=== PATIENT | male | born 1990 | race Caucasian/White ===

== ENCOUNTER → 2018-08-29 | Outpatient (CLI) | payer OTHER ==
--- NOTE | 2018-08-29 09:35 | MR ---
EXAMINATION TYPE: MR brain wo con DATE OF EXAM: 08/29/2018 COMPARISON: NONE HISTORY: Family Hx of Aorta Aneurysm and kidney disease per order. Left orbital reconstruction surger y 7-8 years ago per patient. TECHNIQUE: Multiplanar, multisequence imaging of the brain and brainstem is performed without IV cont rast. FINDINGS: Diffusion weighted images demonstrate no evidence of a recent infarct or other diffusion abnormality. There is no significant white matter signal abnormality. The ventricular system and cisternal spaces are normal in size and appearance. The brain volume is age appropriate. In the midline superior pos terior aspect posterior fossa there is focal 1.9 x 2.0 cm x 2.9 cm lesion of CSF isointensity axial i mage 8 and coronal image 30 suspicious for small arachnoid cyst with local mass effect Midline structures demonstrate normal morphology. The craniocervical junction appears within normal limits. Normal vascular flow voids are present. Slightly tortuous course to distal vertebral arteries is noted bilaterally. No obvious aneurysm is seen. There is mild mucosal thickening with small mucou s retention cysts and/or polyps in the inferior aspect right maxillary sinus. There is mild mucosal t hickening involving anterior ethmoid sinuses bilaterally. Remainder paranasal sinuses are clear. The globes are intact bilaterally. IMPRESSION: No obvious aneurysm noted. Some chronic paranasal sinus disease is seen as detailed above . Suspect 2.0 cm superior posterior posterior fossa arachnoid cyst. If outside MRI becomes available an addendum may be issued.
== END ==
LOC: RADMRIMAIN 07:00
PROVIDERS: ATTEND Family Medicine
DX: R51 Headache (principal)
CPT/HCPCS: 70551

== ENCOUNTER 2020-03-21 17:58 | Emergency (ER) | payer OTHER ==
[2020-03-21 18:06] VITALS: TEMP 98.1
[2020-03-21] MEDS ORDERED: BACITRACIN OINT 1 EACH PACKET TOPICAL ONE (19:08)
--- NOTE | 2020-03-21 19:08 | ED ---
Animal Bite HPI - General Chief Complaint: Animal Bite Stated Complaint: dog bite Time Seen by Provider: 03/21/20 18:28 Source: patient Mode of arrival: ambulatory Limitations: no limitations - History of Present Illness Initial Comments: 29-year-old male presenting today for chief complaint of dog bite to the right forearm. Pateitn states he has 2 opening on the right forarm from breaking up dog fight. Patient has one to the base of thumb of left hand. he states bleeding is controlled. admits to swelling right forearm and tingling in the right hand. Denies decreased strength ROM. Denies concern for retained foreign body. Patient tetanus is UTD in last 5 years. He states the dog is a neighbors pet and he does not have concern for rabies. denies other injuries or complaints. - Related Data Previous Rx's Medication Instructions Recorded Cephalexin [Keflex] 500 mg PO Q8HR #15 cap 07/12/14 Amoxic-Pot Clav 875-125Mg 1 tab PO Q12HR 10 Days #20 tab 03/21/20 [Augmentin 875-125] Allergies Allergy/AdvReac Type Severity Reaction Status Date / Time No Known Allergies Allergy Verified 07/12/14 18:33 Review of Systems ROS Statement: Those systems with pertinent positive or pertinent negative responses have been documented in the HPI. ROS Other: All systems not noted in ROS Statement are negative. Past Medical History Past Medical History: No Reported History History of Any Multi-Drug Resistant Organisms: None Reported Additional Past Surgical History / Comment(s): LT ORBITAL REPAIR Past Psychological History: No Psychological Hx Reported Smoking Status: Never smoker Past Alcohol Use History: None Reported, Rare Past Drug Use History: None Reported General Exam - General Exam Comments Initial Comments: General: The patient is awake and alert, in no distress Eye: +3 mm pupils are equal, round and reactive to light, extra-ocular movements are intact. No nystagmus. There is normal conjunctiva bilaterally. No signs of icterus. Cardiovascular: There is a regular rate and rhythm. No murmur, rub or gallop is appreciated. Respiratory: Lungs are clear to auscultation, respirations are non-labored, breath sounds are equal. No wheezes, stridor, rales, or rhonchi. Gastrointestinal: Soft, non-distended, non-tender abdomen without masses or organomegaly noted. There is no rebound or guarding present. Musculoskeletal: Normal ROM, no tenderness. Strength 5/5 of digits of right and lef thand, wrist and elbow. Sensation intact of UE from arm to fingers. Radial pulses equal bilaterally 2+. Neurological: A&O x 3. CN II-XII intact grossly, There are no obvious motor or sensory deficits. Coordination appears grossly intact. Speech is normal. Skin: Skin is warm and dry and no rashes. 2 punctures of the right distal forearm. 1 of thenar eminence of left thumb base no evidence of foreign body within the small punctures. no active bleeding Psychiatric: Cooperative, appropriate mood & affect, normal judgment. Limitations: no limitations Course Vital Signs 03/21/20 03/21/20 18:00 20:09 Temperature 98.1 F Pulse Rate 137 H 80 Respiratory 16 18 Rate Blood Pressure 151/88 158/87 O2 Sat by Pulse 95 98 Oximetry Medical Decision Making - Medical Decision Making Bleeding controlled. refused xrays, pt didnt think anything broken or retained. tdap UTD. laceration extensively irrigated. bandaged. Patient taking on risk of infection. Patient started on oral antibiotics he is to monitor closely the wound sites. Discussed patient may return if he changes mind about rabies reflexes patient states he wants to talk to his neighbors before he initiates this. Patient has no additional complaints discussed case attending provider and patidarwinn was discharged appearing well. Disposition Clinical Impression: Dog bite, Puncture wound, hand, Puncture wound of right forearm Disposition: HOME SELF-CARE Instructions (If sedation given, give patient instructions): Animal Bite (ED) Additional Instructions: Please use medication as discussed. Please follow-up with family doctor in the next 2 days,watch for infection. Please return to emergency room if the symptoms increase or worsen or for any other concerns. Prescriptions: Amoxic-Pot Clav 875-125Mg [Augmentin 875-125] 1 tab PO Q12HR 10 Days #20 tab Is patient prescribed a controlled substance at d/c from ED?: No Referrals: Nonstaff,Physician [Primary Care Provider] - 1-2 days Time of Disposition: 19:58
[2020-03-21 20:11] VITALS: BP 158/87; PULSE 80; RESP 18
== END 2020-03-21 20:10 | disposition home or self-care (01) ==
LOC: EC 17:58
DX: S51.831A Puncture wound without foreign body of right forearm, initial encounter (principal); S61.032A Puncture wound without foreign body of left thumb without damage to nail, initial encounter; W54.0XXA Bitten by dog, initial encounter
CPT/HCPCS: 99283

== ENCOUNTER 2020-03-22 13:21 | Emergency (ER) | payer OTHER ==
[2020-03-22 13:33] VITALS: RESP 18
[2020-03-22] MEDS ORDERED: RABIES VACCINE (PCEC) 2.5 UNIT KIT IM ONE (13:58)
[2020-03-22] MEDS ORDERED: RABIES IMMUNE GLOB 300 UNIT/ML 1 ML VIAL IM ONE (13:58)
--- NOTE | 2020-03-22 13:59 | ED ---
Animal Bite HPI - General Chief Complaint: Animal Bite Stated Complaint: Shots Time Seen by Provider: 03/22/20 13:43 Source: patient Mode of arrival: ambulatory Limitations: no limitations - History of Present Illness Initial Comments: Patient is a 29-year-old male presenting to the emergency department with a chief complaint of a dog bite. Patient states yesterday he suffered dog bite and found out today the dog was not up-to-date with vaccinations. Patient is requesting rabies prophylaxis. Patient is already on Augmentin. Patient denies nausea vomiting diarrhea. Denies night sweats fevers or chills. Denies any erythema or discharge from the bite sites. - Related Data Previous Rx's Medication Instructions Recorded Cephalexin [Keflex] 500 mg PO Q8HR #15 cap 07/12/14 Amoxic-Pot Clav 875-125Mg 1 tab PO Q12HR 10 Days #20 tab 03/21/20 [Augmentin 875-125] Ibuprofen 800 mg PO Q8H PRN 7 Days #21 tablet 03/22/20 Allergies Allergy/AdvReac Type Severity Reaction Status Date / Time No Known Allergies Allergy Verified 07/12/14 18:33 Review of Systems ROS Statement: Those systems with pertinent positive or pertinent negative responses have been documented in the HPI. ROS Other: All systems not noted in ROS Statement are negative. Past Medical History Past Medical History: No Reported History History of Any Multi-Drug Resistant Organisms: None Reported Additional Past Surgical History / Comment(s): LT ORBITAL REPAIR Past Psychological History: No Psychological Hx Reported Smoking Status: Never smoker Past Alcohol Use History: Rare Past Drug Use History: None Reported General Exam Limitations: no limitations General appearance: alert, in no apparent distress Head exam: Present: atraumatic, normocephalic, normal inspection Eye exam: Present: normal appearance, PERRL, EOMI Pupils: Present: normal accommodation ENT exam: Present: normal exam, normal oropharynx, mucous membranes moist, TM's normal bilaterally, normal external ear exam Neck exam: Present: normal inspection, full ROM. Absent: tenderness Respiratory exam: Present: normal lung sounds bilaterally. Absent: respiratory distress, wheezes, rales Cardiovascular Exam: Present: regular rate, normal rhythm, normal heart sounds Extremities exam: Present: full ROM, tenderness (Tenderness at the injured site), normal capillary refill, other (+2 +2 ulnar and radial pulses bilateral.). Absent: normal inspection (2 puncture wounds from a dog bite on the posterior aspect of his right forearm. Similar ones on the posterior left forearm.) Back exam: Present: normal inspection, full ROM. Absent: tenderness, CVA tenderness (R), CVA tenderness (L) Neurological exam: Present: alert, oriented X3 Psychiatric exam: Present: normal affect, normal mood Skin exam: Present: warm, dry, intact, normal color Course Vital Signs 03/22/20 03/22/20 13:28 13:33 Temperature 97.6 F 98.7 F Pulse Rate 67 78 Respiratory 18 18 Rate Blood Pressure 176/113 159/91 O2 Sat by Pulse 98 100 Oximetry Medical Decision Making - Medical Decision Making Patient 29-year-old male presenting to the emergency department with chief complaint of a dog bite. Patient is requesting rabies prophylaxis because the dog is not up-to-date. Patient was given immunoglobulin partially near the dog bite and the rest of was given IM. Patient was also given a vaccine and advised to return on day 3, 7, 14. The bite sites do not appear infected at this time. He was advised to continue taking Augmentin. Strict return parameters were thoroughly discussed with patient was understanding and agreeable. Case discussed with physician. Disposition Clinical Impression: Bite by animal, Dog bite Disposition: HOME SELF-CARE Condition: Stable Instructions (If sedation given, give patient instructions): Animal Bite (ED) Additional Instructions: Return on day 3, day 7, day 14 2 finished taking her vaccines. Prescriptions: Ibuprofen 800 mg PO Q8H PRN 7 Days #21 tablet PRN Reason: Pain Is patient prescribed a controlled substance at d/c from ED?: No Referrals: Nonstaff,Physician [Primary Care Provider] - 1-2 days Time of Disposition: 15:02
[2020-03-22] MEDS ORDERED: RABIES IMMUNE GLOB 300 UNIT/ML 5 ML VIAL IM ONE (14:00)
[2020-03-22 15:46] VITALS: BP 159/91; PULSE 78; TEMP 98.7
== END 2020-03-22 15:42 | disposition home or self-care (01) ==
LOC: EC 13:21
DX: S51.832A Puncture wound without foreign body of left forearm, initial encounter (principal); S51.831A Puncture wound without foreign body of right forearm, initial encounter; Z23 Encounter for immunization; Z29.14 Encounter for prophylactic rabies immune globulin; Z20.3 Contact with and (suspected) exposure to rabies; W54.0XXA Bitten by dog, initial encounter
CPT/HCPCS: 90375; 90471; 90675; 96372; 99282

== ENCOUNTER → 2020-04-13 | Outpatient (CLI) | payer OTHER ==
--- NOTE | 2020-04-14 09:12 | MR ---
EXAMINATION TYPE: MR shoulder LT wo con DATE OF EXAM: 04/13/2020 COMPARISON: None. HISTORY: Left shoulder Pain. Altercation with dog, pulling on Arm pain in shoulder area started. Inju ry of rotator cuff tendon per order. TECHNIQUE: Multiplanar, multisequence imaging of the left shoulder is performed without contrast. FINDINGS: Rotator Cuff: Distal supraspinatus and infraspinatus tendons are intact. Subscapularis tendon is inta ct. Rotator cuff muscle bulk is preserved. Acromioclavicular Joint: Underlying fat plane is maintained. Distal acromion morphology unremarkable. Perhaps Mild narrowing. No significant spurring. Glenohumeral Joint: No significant effusion. [id number]-bjdimnam narrowing with 10 mm subchondral cyst o r geode involving the posterior central osseous glenoid coronal image 17 and axial image 12. No signi ficant spurring. Labrum: The labrum appears grossly intact given limitation of non-arthrogram study. Biceps Tendon: The long head of biceps is in normal location within bicipital groove. Bone marrow signal: Some heterogeneous increased T2 signal medial aspect humeral head greatest anteri kristofer. Other: No additional significant abnormality is appreciated. IMPRESSION: 1. No rotator cuff or labral tear seen. 2. Suspect osseous contusion injury involving the anterior medial humeral head. Increased glenohumera l joint arthropathy noted.
== END | disposition home or self-care (01) ==
LOC: RADMRIMAIN 16:30
PROVIDERS: ATTEND Family Medicine
DX: S46.002A Unspecified injury of muscle(s) and tendon(s) of the rotator cuff of left shoulder, initial encounter (principal)

== ENCOUNTER 2020-05-12 19:21 | Emergency (ER) | payer OTHER ==
[2020-05-12 19:25] VITALS: RESP 18; TEMP 98.4
[2020-05-12 20:01] LABS: Basophils # (A) 0.2 k/uL (0-0.2); Basophils % (A) 4 %; Eosinophils # (A) 0.2 k/uL (0-0.7); Eosinophils % (A) 4 %; HGB 15.5 gm/dL (13.0-17.5); Lymphocytes # (A) 1.1 k/uL (1.0-4.8); Lymphocytes % (A) 18 %; MCH 27.9 pg (25.0-35.0); MCHC 33.7 g/dL (31.0-37.0); MCV 82.7 fL (80.0-100.0); Mean Platelet Volume 7.3; Monocytes # (A) 0.4 k/uL (0-1.0); Monocytes % (A) 6 %; Neutrophils % (A) 68 %; Platelet Count 194 k/uL (150-450); RBC 5.56 m/uL (4.30-5.90); RDW 13.1 % (11.5-15.5); WBC 5.9 k/uL (3.8-10.6)
[2020-05-12 20:10] LABS: ALT 43 U/L (4-49); AST 46 U/L (17-59); African American GFR (CKD) >90 (>60 ml/min/1.73 sqM); Albumin 4.6 g/dL (3.5-5.0); Alkaline Phosphatase 86 U/L (38-126); Anion Gap 10 mmol/L; Blood Urea Nitrogen 20 mg/dL (9-20); Calcium 9.2 mg/dL (8.4-10.2); Carbon Dioxide 25 mmol/L (22-30); Chloride 101 mmol/L (98-107); Glucose 115 mg/dL (74-99); INR 0.9 (<1.2); Non-African American GFR(CKD) >90 (>60 ml/min/1.73 sqM); Potassium 4.2 mmol/L (3.5-5.1); Prothrombin Time 9.4 sec (9.0-12.0); Sodium 136 mmol/L (137-145); Total Bilirubin 0.4 mg/dL (0.2-1.3); Total Protein 8.1 g/dL (6.3-8.2)
--- NOTE | 2020-05-12 20:12 | ED ---
General Adult HPI - General Chief complaint: Shortness of Breath Stated complaint: Chest Pain, SOB Time Seen by Provider: 05/12/20 19:25 Source: patient, RN notes reviewed, old records reviewed Mode of arrival: ambulatory Limitations: no limitations - History of Present Illness Initial comments: This is a 29-year-old male who presents emergency Department stating he was exposed to cold last Monday. Patient states since then over the last few days he's been getting body aches and having difficult time breathing. Patient states anytime he gets up to exert himself he feels heavy when he tries to breathe. Patient denies any chest pain actually. Patient denies any fevers. Patient states she has lost his sense of smell. Patient denies any diarrhea. Patient denies any abdominal pain patient denies any vomiting. Patient denies lightheadedness or dizziness. - Related Data Home Medications Medication Instructions Recorded Confirmed Sertraline [Zoloft] 1 tab PO DAILY 03/25/20 03/25/20 Previous Rx's Medication Instructions Recorded Cephalexin [Keflex] 500 mg PO Q8HR #15 cap 07/12/14 Amoxic-Pot Clav 875-125Mg 1 tab PO Q12HR 10 Days #20 tab 03/21/20 [Augmentin 875-125] Ibuprofen 800 mg PO Q8H PRN 7 Days #21 tablet 03/22/20 Allergies Allergy/AdvReac Type Severity Reaction Status Date / Time No Known Allergies Allergy Verified 05/12/20 19:25 Review of Systems ROS Statement: Those systems with pertinent positive or pertinent negative responses have been documented in the HPI. ROS Other: All systems not noted in ROS Statement are negative. Past Medical History Past Medical History: No Reported History History of Any Multi-Drug Resistant Organisms: None Reported Additional Past Surgical History / Comment(s): LT ORBITAL REPAIR Past Psychological History: No Psychological Hx Reported Smoking Status: Never smoker Past Alcohol Use History: Occasional Past Drug Use History: None Reported General Exam - General Exam Comments Initial Comments: GENERAL: Patient is well-developed and well-nourished. Patient is nontoxic and well- hydrated and is in mild distress. ENT: Neck is soft and supple. No significant lymphadenopathy is noted. Oropharynx is clear. Moist mucous membranes. Neck has full range of motion without eliciting any pain. EYES: The sclera were anicteric and conjunctiva were pink and moist. Extraocular movements were intact and pupils were equal round and reactive to light. Eyelids were unremarkable. PULMONARY: Unlabored respirations. Good breath sounds bilaterally. No audible rales rhonchi or wheezing was noted. CARDIOVASCULAR: There is a regular rate and rhythm without any murmurs gallops or rubs. ABDOMEN: Soft and nontender with normal bowel sounds. SKIN: Skin is clear with no lesions or rashes and otherwise unremarkable. NEUROLOGIC: Patient is alert and oriented x3. Cranial nerves II through XII are grossly intact. Motor and sensory are also intact. Normal speech, volume and content. Symmetrical smile. MUSCULOSKELETAL: Normal extremities with adequate strength and full range of motion. LYMPHATICS: No significant lymphadenopathy is noted PSYCHIATRIC: Normal psychiatric evaluation. Limitations: no limitations Course Vital Signs 05/12/20 05/12/20 05/12/20 19:22 20:18 20:37 Temperature 98.4 F Pulse Rate 89 83 94 Respiratory 18 18 18 Rate Blood Pressure 165/122 154/102 149/97 O2 Sat by Pulse 97 98 96 Oximetry Medical Decision Making - Medical Decision Making EKG shows normal sinus rhythm at 89 bpm NM interval is on a 54 QRS is 104 QT interval 362 QTC is 440. Patient's EKG shows no ST segment elevation or depression. Chest x-ray shows no acute abnormality. Patient's COVID test is still pending patient does not want to wait but his symptoms are consistent with COVID and he has been instructed to return if there is any difficulty breathing. He will be given the results by phone by the nurse. - Lab Data Result diagrams: 05/12/20 19:46 05/12/20 19:45 Lab Results 05/12/20 05/12/20 05/12/20 Range/Units 19:03 19:45 19:45 WBC (3.8-10.6) k/uL RBC (4.30-5.90) m/uL Hgb (13.0-17.5) gm/dL Hct (39.0-53.0) % MCV (80.0-100.0) fL MCH (25.0-35.0) pg MCHC (31.0-37.0) g/dL RDW (11.5-15.5) % Plt Count (150-450) k/uL MPV Neutrophils % % Lymphocytes % % Monocytes % % Eosinophils % % Basophils % % Neutrophils # (1.3-7.7) k/uL Lymphocytes # (1.0-4.8) k/uL Monocytes # (0-1.0) k/uL Eosinophils # (0-0.7) k/uL Basophils # (0-0.2) k/uL PT 9.4 (9.0-12.0) sec INR 0.9 (<1.2) APTT 24.0 (22.0-30.0) sec Sodium 136 L (137-145) mmol/L Potassium 4.2 (3.5-5.1) mmol/L Chloride 101 (98-107) mmol/L Carbon Dioxide 25 (22-30) mmol/L Anion Gap 10 mmol/L BUN 20 (9-20) mg/dL Creatinine 0.88 (0.66-1.25) mg/dL Est GFR (CKD-EPI)AfAm >90 (>60 ml/min/1.73 sqM) Est GFR (CKD-EPI)NonAf >90 (>60 ml/min/1.73 sqM) Glucose 115 H (74-99) mg/dL Plasma Lactic Acid Leon 1.2 (0.7-2.0) mmol/L Calcium 9.2 (8.4-10.2) mg/dL Total Bilirubin 0.4 (0.2-1.3) mg/dL AST 46 (17-59) U/L ALT 43 (4-49) U/L Alkaline Phosphatase 86 (38-126) U/L Troponin I (0.000-0.034) ng/mL Total Protein 8.1 (6.3-8.2) g/dL Albumin 4.6 (3.5-5.0) g/dL 05/12/20 05/12/20 Range/Units 19:45 19:46 WBC 5.9 (3.8-10.6) k/uL RBC 5.56 (4.30-5.90) m/uL Hgb 15.5 (13.0-17.5) gm/dL Hct 46.0 (39.0-53.0) % MCV 82.7 (80.0-100.0) fL MCH 27.9 (25.0-35.0) pg MCHC 33.7 (31.0-37.0) g/dL RDW 13.1 (11.5-15.5) % Plt Count 194 (150-450) k/uL MPV 7.3 Neutrophils % 68 % Lymphocytes % 18 % Monocytes % 6 % Eosinophils % 4 % Basophils % 4 % Neutrophils # 4.0 (1.3-7.7) k/uL Lymphocytes # 1.1 (1.0-4.8) k/uL Monocytes # 0.4 (0-1.0) k/uL Eosinophils # 0.2 (0-0.7) k/uL Basophils # 0.2 (0-0.2) k/uL PT (9.0-12.0) sec INR (<1.2) APTT (22.0-30.0) sec Sodium (137-145) mmol/L Potassium (3.5-5.1) mmol/L Chloride (98-107) mmol/L Carbon Dioxide (22-30) mmol/L Anion Gap mmol/L BUN (9-20) mg/dL Creatinine (0.66-1.25) mg/dL Est GFR (CKD-EPI)AfAm (>60 ml/min/1.73 sqM) Est GFR (CKD-EPI)NonAf (>60 ml/min/1.73 sqM) Glucose (74-99) mg/dL Plasma Lactic Acid Leon (0.7-2.0) mmol/L Calcium (8.4-10.2) mg/dL Total Bilirubin (0.2-1.3) mg/dL AST (17-59) U/L ALT (4-49) U/L Alkaline Phosphatase (38-126) U/L Troponin I <0.012 (0.000-0.034) ng/mL Total Protein (6.3-8.2) g/dL Albumin (3.5-5.0) g/dL Disposition Clinical Impression: COVID-19 Disposition: HOME SELF-CARE Condition: Good Instructions (If sedation given, give patient instructions): Viral Syndrome (ED) Additional Instructions: Patient should return to emergency department if he has any difficulty breathing or any new symptoms. Is patient prescribed a controlled substance at d/c from ED?: No Referrals: Nonstaff,Physician [Primary Care Provider] - 1-2 days Time of Disposition: 20:55
--- NOTE | 2020-05-12 20:22 | XR ---
EXAMINATION TYPE: XR chest 2V DATE OF EXAM: 05/12/2020 COMPARISON: NONE HISTORY: Cough. Short of breath TECHNIQUE: 2 views FINDINGS: Heart and mediastinum are normal. Lungs are clear. Diaphragm is normal. Bony thorax appears normal. IMPRESSION: Normal chest.
[2020-05-12 20:38] VITALS: BP 149/97; PULSE 94
== END 2020-05-12 21:18 | disposition home or self-care (01) ==
LOC: EC 19:21
DX: U07.1 COVID-19 (principal)
CPT/HCPCS: 36415; 93005; 80053; 83605; 84484; 85025; 85610; 85730; 87635; 71046; 99285; U0003

== ENCOUNTER 2020-11-03 13:44 | Emergency (ER) | payer OTHER ==
[2020-11-03 13:50] VITALS: TEMP 97.7
[2020-11-03] MEDS ORDERED: ASPIRIN 81 MG PO STA (14:17)
[2020-11-03 14:43] LABS: INR 0.9 (<1.2); Partial Thromboplastin Time 23.5 sec (22.0-30.0); Prothrombin Time 9.8 sec (9.0-12.0)
--- NOTE | 2020-11-03 14:46 | ED ---
Chest Pain HPI - General Chief Complaint: Chest Pain Stated Complaint: chest pain Time Seen by Provider: 11/03/20 14:03 Source: patient Mode of arrival: ambulatory Limitations: no limitations - History of Present Illness Initial Comments: Patient is a 30-year-old male presenting to the emergency Department with complaints of chest tightness that has been ongoing since approximately 9:30 this morning. Patient states he was really stressed this morning and thought that his symptoms could be just from the stress. He went to work and had a work meeting and then when he was leaving he felt like the tightness was getting a little worse. He states he pulled into a parking lot and just rested for a few minutes, this did improve his symptoms slightly. He states he talked his recommended coming into the ER for evaluation. He states presently, his tightness is minimal, 2/10. He describes it as all over his anterior chest. No radiation. He denies any recent fever or chills. He states he has been battling a sinus infection for the past week. No coughing, no shortness of breath. He denies any nausea or vomiting. He denies history of heart disease. He states he recently started taking Zoloft for anxiety secondary to the of his younger brother. Patient also started a blood pressure medication bend a lot sheers well. He denies any sudden cardiac in his family, no heart disease. 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 He has no further complaints at this time. Upon arrival to the ER, his vitals are stable. - Related Data Home Medications Medication Instructions Recorded Confirmed Acetaminophen Tab [Tylenol] 1,000 mg PO Q6H PRN 05/12/20 05/12/20 Losartan [Cozaar] 50 mg PO DAILY@1600 05/12/20 05/12/20 Sertraline [Zoloft] 100 mg PO DAILY@1600 05/12/20 05/12/20 Previous Rx's Medication Instructions Recorded Amoxicillin/Potassium Clav 1 tab PO BID 7 Days #14 tab 11/03/20 [Augmentin 875-125 Tablet] Allergies Allergy/AdvReac Type Severity Reaction Status Date / Time No Known Allergies Allergy Verified 11/03/20 13:50 Review of Systems ROS Statement: Those systems with pertinent positive or pertinent negative responses have been documented in the HPI. ROS Other: All systems not noted in ROS Statement are negative. EKG Findings - EKG Comments: EKG Findings:: Normal sinus rhythm, normal ECG, no signs of an acute ischemia. Ventricular rate 66, LA interval 162, QTC 408. This looks similar to his previous EKG on 05/12/2020. Past Medical History Past Medical History: No Reported History History of Any Multi-Drug Resistant Organisms: None Reported Additional Past Surgical History / Comment(s): LT ORBITAL REPAIR Past Psychological History: No Psychological Hx Reported Smoking Status: Never smoker Past Alcohol Use History: Occasional Past Drug Use History: None Reported General Exam - General Exam Comments Initial Comments: GENERAL: Patient is well-developed and well-nourished. Patient is nontoxic and in no acute distress. HEAD: Atraumatic, normocephalic. EYES: Pupils equal round and reactive to light, extraocular movements intact, sclera anicteric, conjunctiva are normal. Eyelids were unremarkable. ENT: TMs normal, nares patent, oropharynx clear without exudates. Moist mucous membranes. NECK: Normal range of motion, supple without lymphadenopathy or JVD. LUNGS: Unlabored respirations. Breath sounds clear to auscultation bilaterally and equal. No wheezes rales or rhonchi. HEART: Regular rate and rhythm without murmurs, rubs or gallops. ABDOMEN: Soft, nontender, normoactive bowel sounds. No guarding, no rebound. No masses appreciated. : Deferred MUSCULOSKELETAL: Normal extremities with adequate strength and normal range of motion, no pitting or edema. No clubbing or cyanosis. NEUROLOGICAL: Patient is alert and oriented x 3. Motor and sensory are also intact. Cranial nerves II through XII grossly intact. Symmetrical smile. Normal speech, normal gait. PSYCH: Normal mood, normal affect. SKIN: Warm, Dry, normal turgor, no rashes or lesions noted. Limitations: no limitations Course Vital Signs 11/03/20 11/03/20 11/03/20 13:45 13:56 15:32 Temperature 97.7 F Pulse Rate 66 60 Respiratory 18 16 18 Rate Blood Pressure 162/102 139/93 O2 Sat by Pulse 100 100 Oximetry Chest [facility] Patient is a 30-year-old male with history of mild anxiety, presenting with increasing chest tightness over this morning. Patient states he is really stressed when he woke up, had a stressful work meeting and states after the meeting his chest tightness increased. He was slightly hypertensive upon arrival, rest of vitals normal. EKG showed no signs of an ischemic process. Labs are unremarkable, normal troponin. Chest x-ray is normal. Vital signs are rechecked, blood pressure is normal. Patient does feel better. He no longer has had chest tightness. I discussed with patient that this is most likely anxiety, panic attack. I did recommend following up with his PCP. I will treat him with an antibiotic for his sinus infection. He is stable for discharge. He is in agreement with this plan of care. Return parameters were discussed with him and he verbalized understanding. Case discussed with Dr. Buenrostro. Disposition Clinical Impression: Atypical chest pain, Anxiety, Sinusitis Disposition: HOME SELF-CARE Condition: Stable Instructions (If sedation given, give patient instructions): Anxiety (ED) Additional Instructions: Please return to the Emergency Department if symptoms worsen or any other concerns. Take antibiotic as prescribed for your sinus infection. Please follow up with your primary care physician as discussed. Prescriptions: Amoxicillin/Potassium Clav [Augmentin 875-125 Tablet] 1 tab PO BID 7 Days #14 tab Is patient prescribed a controlled substance at d/c from ED?: No Referrals: Britt De Jesus DO [Primary Care Provider] - 1-2 days Time of Disposition: 15:46
[2020-11-03 14:52] LABS: ALT 24 U/L (4-49); AST 29 U/L (17-59); African American GFR (CKD) >90 (>60 ml/min/1.73 sqM); Albumin 4.7 g/dL (3.5-5.0); Alkaline Phosphatase 78 U/L (38-126); Anion Gap 9 mmol/L; Blood Urea Nitrogen 20 mg/dL (9-20); Calcium 9.9 mg/dL (8.4-10.2); Carbon Dioxide 26 mmol/L (22-30); Chloride 105 mmol/L (98-107); Glucose 91 mg/dL (74-99); Magnesium 1.7 mg/dL (1.6-2.3); Non-African American GFR(CKD) >90 (>60 ml/min/1.73 sqM); Sodium 140 mmol/L (137-145); Total Bilirubin 0.4 mg/dL (0.2-1.3); Total Protein 7.7 g/dL (6.3-8.2)
[2020-11-03 15:16] LABS: Basophils # (A) 0.1 k/uL (0-0.2); Basophils % (A) 1 %; Eosinophils # (A) 0.3 k/uL (0-0.7); Eosinophils % (A) 3 %; HGB 15.2 gm/dL (13.0-17.5); Lymphocytes # (A) 1.9 k/uL (1.0-4.8); Lymphocytes % (A) 22 %; MCH 27.1 pg (25.0-35.0); Mean Platelet Volume 7.9; Monocytes # (A) 0.4 k/uL (0-1.0); Monocytes % (A) 5 %; Neutrophils # (A) 5.9 k/uL (1.3-7.7); Neutrophils % (A) 68 %; Platelet Count 228 k/uL (150-450); RBC 5.61 m/uL (4.30-5.90); RDW 13.4 % (11.5-15.5); WBC 8.6 k/uL (3.8-10.6)
--- NOTE | 2020-11-03 15:19 | XR ---
EXAMINATION TYPE: XR chest 2V DATE OF EXAM: 11/03/2020 COMPARISON: 10/26/2020 HISTORY: Chest pain and 30-year-old male. TECHNIQUE: Frontal and lateral views of the chest are obtained. FINDINGS: Overlying leads. Heart size is within normal limits. No pleural effusion, focal consolidat ion or pneumothorax. Osseous structures are unremarkable. IMPRESSION: 1. No acute pulmonary disease.
[2020-11-03 15:35] VITALS: BP 139/93; PULSE 60; RESP 18
== END 2020-11-03 16:23 | disposition home or self-care (01) ==
LOC: EC 13:44
DX: R07.89 Other chest pain (principal); F41.9 Anxiety disorder, unspecified; J32.9 Chronic sinusitis, unspecified
CPT/HCPCS: 36415; 71046; 80053; 83735; 84484; 85025; 85610; 85730; 93005; 99285

== ENCOUNTER 2024-08-30 10:05 | Emergency (ER) | payer BC, OTHER ==
[2024-08-30 10:10] VITALS: PULSE 69; RESP 18; TEMP 97.8
--- NOTE | 2024-08-30 10:12 | ED ---
Abdominal Pain HPI - General Chief Complaint: Abdominal Pain Stated Complaint: Post-op pain Time Seen by Provider: 08/30/24 10:12 Source: patient, RN notes reviewed Mode of arrival: ambulatory Limitations: no limitations - History of Present Illness Initial Comments: 34-year-old male with a past medical history significant of polycystic kidney disease presenting to the ER for evaluation of right upper quadrant abdominal pain. Patient states about 2 weeks ago he underwent right ureteral stent placement due to a ruptured cyst completed at [facility] by Dr. Faria. Patient states he has followed up with him outpatient. He is unsure if stent is still in place. He reports since last night he has been having a sharp consistent right upper quadrant abdominal pain with mild radiation to his flank. He reports a nauseous feeling but denies any vomiting, constipation or diarrhea. He admits to chills but denies fevers. He has not taken anything for pain at this time. Patient is concerned there may be an issue with his kidney. He denies any hematuria, dysuria or peripheral edema. He does report an increase in urinary frequency since stent placement. Patient also admits to recent 20 pound weight loss given decreased appetite. No other significant past medical history. Patient reports a history of vasectomy and exploratory laparotomy. No other prior bowel surgeries. Patient has no other complaints at this time. - Related Data Home Medications Medication Instructions Recorded Confirmed Acetaminophen Tab [Tylenol] 1,000 mg PO Q6H PRN 05/12/20 05/12/20 Losartan [Cozaar] 50 mg PO DAILY@1600 05/12/20 05/12/20 Sertraline [Zoloft] 100 mg PO DAILY@1600 05/12/20 05/12/20 Previous Rx's Medication Instructions Recorded Amoxicillin/Potassium Clav 1 tab PO BID 7 Days #14 tab 11/03/20 [Augmentin 875-125 Tablet] Sulfamethox-Tmp 800-160Mg [Bactrim 1 each PO Q12HR #20 tab 08/30/24 Ds] Allergies Allergy/AdvReac Type Severity Reaction Status Date / Time No Known Allergies Allergy Verified 08/30/24 10:10 Review of Systems ROS Statement: Those systems with pertinent positive or pertinent negative responses have been documented in the HPI. ROS Other: All systems not noted in ROS Statement are negative. Past Medical History Past Medical History: No Reported History Additional Past Medical History / Comment(s): Polycystic kidney disease History of Any Multi-Drug Resistant Organisms: None Reported Additional Past Surgical History / Comment(s): LT ORBITAL REPAIR Past Psychological History: No Psychological Hx Reported Smoking Status: Never smoker Past Alcohol Use History: Occasional Past Drug Use History: Marijuana General Exam Limitations: no limitations General appearance: alert, in no apparent distress Respiratory exam: Present: normal lung sounds bilaterally. Absent: respiratory distress, wheezes, rales, rhonchi, stridor Cardiovascular Exam: Present: regular rate, normal rhythm, normal heart sounds. Absent: systolic murmur, diastolic murmur, rubs, gallop, clicks GI/Abdominal exam: Present: soft, tenderness (Right upper quadrant), normal bow el sounds Back exam: Present: normal inspection, CVA tenderness (R) Neurological exam: Present: alert, oriented X3, CN II-XII intact Skin exam: Present: warm, dry, intact, normal color. Absent: rash Course Vital Signs 08/30/24 08/30/24 10:07 13:28 Temperature 97.8 F Pulse Rate 69 69 Respiratory 18 18 Rate Blood Pressure 159/95 159/89 O2 Sat by Pulse 99 99 Oximetry - Reevaluation(s) Reevaluation #1: 08/30/24 13:01 Case discussed with on-call urology, Dr. Hairston. He advised on outpatient management and to have patient follow-up with his urologist. Medical Decision Making - Medical Decision Making Was pt. sent in by a medical professional or institution (, PA, BOWLING OR SKATING FRONT DESK CLERK, urgent care, hospital, or senior living...) When possible be specific @ -No Did you speak to anyone other than the patient for history (EMS, parent, family, police, friend...)? What history was obtained from this source @ -No Did you review nursing and triage notes (agree or disagree)? Why? @ -I reviewed and agree with nursing and triage notes Were old charts reviewed (outside hosp., previous admission, EMS record, old EKG, old radiological studies, urgent care reports/EKG's, senior living records)? Report findings @ -CT abdomen pelvis completed on 08-09-2024 at [facility] reviewed. Showing large filling defects of the right renal pelvis was likely represent blood clots and/or neoplasm. Transitional cell neoplasm difficult to exclude. Polycystic liver and kidney disease. Malignant transformation cannot be excluded. Scattered benign calcifications. Differential Diagnosis (chest pain, altered mental status, abdominal pain women, abdominal pain men, vaginal bleeding, weakness, fever, dyspnea, syncope, headache, dizziness, GI bleed, back pain, seizure, CVA, palpatations, mental health, musculoskeletal)? @ -Differential Abdominal Pain Men: Appendicitis, cholecystitis, diverticulosis, ischemic bowel, pancreatitis, hepatitis, UTI, gastroenteritis, AAA, incarcerated hernia, bowel obstruction, constipation, inflammatory bowel, hepatitis, peptic ulcer disease, splenic infarction, perforated viscus, testicular torsion, this is not meant to be an all-inclusive list EKG interpreted by me (3pts min.). @ -None done X-rays interpreted by me (1pt min.). @ -None done CT interpreted by me (1pt min.). @ -CT abdomen pelvis showing innumerable cysts to bilateral kidneys. There is mild stranding and edema noted to right kidney compared to left without hydro nephrosis. Possibly reflecting hemorrhagic cyst. Cannot rule out underlying infection. U/S interpreted by me (1pt. min.). @ -None done What testing was considered but not performed or refused? (CT, X-rays, U/S, labs)? Why? @ -None What meds were considered but not given or refused? Why? @ -None Did you discuss the management of the patient with other professionals (professionals i.e. , PA, BOWLING OR SKATING FRONT DESK CLERK, lab, RT, psych nurse, social work manager, organic section technical lead, teacher, security flex officer, casework specialist)? Give summary @ -Yes, case discussed with on-call urology, Dr. Hairston. He advised on outpatient management and to have patient follow-up closely with his urologist. Was smoking cessation discussed for >3mins.? @ -No Was critical care preformed (if so, how long)? @ -No Were there social determinants of health that impacted care today? How? (Homelessness, low income, unemployed, alcoholism, drug addiction, transportation, low edu. Level, literacy, decrease access to med. care, correction, rehab)? @ -No Was there de-escalation of care discussed even if they declined (Discuss DNR or withdrawal of care, Hospice)? DNR status @ -No What co-morbidities impacted this encounter? (DM, HTN, Smoking, COPD, CAD, Can cer, CVA, ARF, Chemo, Hep., AIDS, mental health diagnosis, sleep apnea, morbid obesity)? @ -Polycystic kidney disease Was patient admitted / discharged? Hospital course, mention meds given and route, prescriptions, significant lab abnormalities, going to OR and other pertinent info. @ -Discharge. 34-year-old male with a past medical history significant of polycystic kidney disease presenting to the ER for evaluation of right flank pain. Vitals acceptable limits. There is focal right upper quadrant/flank pain. Laboratory studies showed a leukocytosis of 11.0 with a left shift. Hemoglobin stable at 12.5. Kidney function unremarkable. Urinalysis hemorrhagic likely due to hemorrhagic cysts seen on CT abdomen pelvis. CT imaging showing mild stranding and edema noted to right kidney and cannot exclude underlying infection. Patient given symptomatic treatment in the ER with IV fluids, Dilaudid and Tylenol. Given leukocytosis and CT findings that cannot exclude infection, pyelonephritis, patient given Rocephin prior to discharge. Patient also started on Bactrim outpatient. I did discuss laboratory and CT findings with on-call urology, Dr. Hairston. He advised on outpatient management and close follow-up with patient's urologist. Upon reevaluation, patient resting comfortably in exam room no signs of acute distress. Results discussed with patient, all questions answered. Patient is comfortable and agreeable for discharge at this time. Strict return parameters discussed. Advise close follow-up with his urologist and powerhouse mechanic. Patient states he will contact his urologist and reach out to prior powerhouse mechanic at [facility] to follow-up with. Patient discharged in stable condition. Patient verbally expressed understanding agreement with care plan. Case discussed with ED attending, Dr. Fitch. Undiagnosed new problem with uncertain prognosis? @ -No Drug Therapy requiring intensive monitoring for toxicity (Heparin, Nitro, Insulin, Cardizem)? @ -No Were any procedures done? @ -No Diagnosis/symptom? @ -Flank pain Acute, or Chronic, or Acute on Chronic? @ -Acute Uncomplicated (without systemic symptoms) or Complicated (systemic symptoms)? @ -Complicated Side effects of treatment? @ -No Exacerbation, Progression, or Severe Exacerbation? @ -No Poses a threat to life or bodily function? How? (Chest pain, USA, ID, pneumonia, PE, COPD, DKA, ARF, appy, cholecystitis, CVA, Diverticulitis, Homicidal, Suicidal, threat to staff... and all critical care pts) @ -Low at this time - Lab Data Result diagrams: 08/30/24 10:37 08/30/24 10:37 Lab Results 08/30/24 08/30/24 08/30/24 Range/Units 10:37 10:37 10:37 WBC 11.0 H (3.8-10.6) k/uL RBC 4.92 (4.30-5.90) m/uL Hgb 12.5 L (13.0-17.5) gm/dL Hct 39.0 (39.0-53.0) % MCV 79.3 L (80.0-100.0) fL MCH 25.3 (25.0-35.0) pg MCHC 31.9 (31.0-37.0) g/dL RDW 12.5 (11.5-15.5) % Plt Count 371 (150-450) k/uL MPV 6.9 Neutrophils % 79 % Lymphocytes % 14 % Monocytes % 4 % Eosinophils % 2 % Basophils % 0 % Neutrophils # 8.7 H (1.3-7.7) k/uL Lymphocytes # 1.5 (1.0-4.8) k/uL Monocytes # 0.5 (0-1.0) k/uL Eosinophils # 0.2 (0-0.7) k/uL Basophils # 0.0 (0-0.2) k/uL Hypochromasia Slight Sodium 141 (137-145) mmol/L Potassium 4.2 (3.5-5.1) mmol/L Chloride 102 (98-107) mmol/L Carbon Dioxide 27 (22-30) mmol/L Anion Gap 12 mmol/L BUN 16 (9-20) mg/dL Creatinine 0.97 (0.66-1.25) mg/dL Est GFR (CKD-EPI)AfAm >90 (>60 ml/min/1.73 sqM) Est GFR (CKD-EPI)NonAf >90 (>60 ml/min/1.73 sqM) Glucose 101 H (74-99) mg/dL Plasma Lactic Acid Leon 1.1 (0.7-2.0) mmol/L Calcium 9.4 (8.4-10.2) mg/dL Total Bilirubin 0.4 (0.2-1.3) mg/dL AST 17 (17-59) U/L ALT 14 (4-49) U/L Alkaline Phosphatase 86 (38-126) U/L Total Protein 7.5 (6.3-8.2) g/dL Albumin 4.2 (3.5-5.0) g/dL Urine Color Urine Appearance (Clear) Urine pH (5.0-8.0) Ur Specific Harrison (1.001-1.035) Urine Protein (Negative) Urine Glucose (UA) (Negative) Urine Ketones (Negative) Urine Blood (Negative) Urine Nitrite (Negative) Urine Bilirubin (Negative) Urine Urobilinogen (<2.0) mg/dL Ur Leukocyte Esterase (Negative) Urine RBC (0-5) /hpf Urine WBC (0-5) /hpf Ur Squamous Epith Cells (0-4) /hpf Urine Mucus (None) /hpf 08/30/24 Range/Units 12:17 WBC (3.8-10.6) k/uL RBC (4.30-5.90) m/uL Hgb (13.0-17.5) gm/dL Hct (39.0-53.0) % MCV (80.0-100.0) fL MCH (25.0-35.0) pg MCHC (31.0-37.0) g/dL RDW (11.5-15.5) % Plt Count (150-450) k/uL MPV Neutrophils % % Lymphocytes % % Monocytes % % Eosinophils % % Basophils % % Neutrophils # (1.3-7.7) k/uL Lymphocytes # (1.0-4.8) k/uL Monocytes # (0-1.0) k/uL Eosinophils # (0-0.7) k/uL Basophils # (0-0.2) k/uL Hypochromasia Sodium (137-145) mmol/L Potassium (3.5-5.1) mmol/L Chloride (98-107) mmol/L Carbon Dioxide (22-30) mmol/L Anion Gap mmol/L BUN (9-20) mg/dL Creatinine (0.66-1.25) mg/dL Est GFR (CKD-EPI)AfAm (>60 ml/min/1.73 sqM) Est GFR (CKD-EPI)NonAf (>60 ml/min/1.73 sqM) Glucose (74-99) mg/dL Plasma Lactic Acid Leon (0.7-2.0) mmol/L Calcium (8.4-10.2) mg/dL Total Bilirubin (0.2-1.3) mg/dL AST (17-59) U/L ALT (4-49) U/L Alkaline Phosphatase (38-126) U/L Total Protein (6.3-8.2) g/dL Albumin (3.5-5.0) g/dL Urine Color Light Yellow Urine Appearance Cloudy (Clear) Urine pH 7.5 (5.0-8.0) Ur Specific Harrison 1.020 (1.001-1.035) Urine Protein 1+ H (Negative) Urine Glucose (UA) Negative (Negative) Urine Ketones Negative (Negative) Urine Blood Large H (Negative) Urine Nitrite Negative (Negative) Urine Bilirubin Negative (Negative) Urine Urobilinogen <2.0 (<2.0) mg/dL Ur Leukocyte Esterase Large H (Negative) Urine RBC >182 H (0-5) /hpf Urine WBC 73 H (0-5) /hpf Ur Squamous Epith Cells <1 (0-4) /hpf Urine Mucus Rare H (None) /hpf - Radiology Data Radiology results: report reviewed, image reviewed Disposition Clinical Impression: Flank pain Disposition: HOME SELF-CARE Condition: Stable Additional Instructions: Follow-up closely with urology and nephrology. Return to the ER for any new or w orsening symptoms. Prescriptions: Sulfamethox-Tmp 800-160Mg [Bactrim Ds] 1 each PO Q12HR #20 tab Is patient prescribed a controlled substance at d/c from ED?: No Referrals: Stephanie Fisher DO [Primary Care Provider] - 1-2 days Time of Disposition: 12:57
[2024-08-30 10:47] LABS: Basophils % (A) 0 %; Eosinophils # (A) 0.2 k/uL (0-0.7); Eosinophils % (A) 2 %; HGB 12.5 gm/dL (13.0-17.5); Hypochromasia Slight; Lymphocytes # (A) 1.5 k/uL (1.0-4.8); Lymphocytes % (A) 14 %; MCH 25.3 pg (25.0-35.0); MCHC 31.9 g/dL (31.0-37.0); MCV 79.3 fL (80.0-100.0); Mean Platelet Volume 6.9; Monocytes # (A) 0.5 k/uL (0-1.0); Monocytes % (A) 4 %; Neutrophils # (A) 8.7 k/uL (1.3-7.7); Neutrophils % (A) 79 %; Platelet Count 371 k/uL (150-450); RBC 4.92 m/uL (4.30-5.90); RDW 12.5 % (11.5-15.5)
[2024-08-30] MEDS: ACETAMINOPHEN TAB 325 MG TAB PO STA (10:49)
[2024-08-30] MEDS: SODIUM CHLORIDE 0.9% 1,000 ML IV ONE (10:50)
[2024-08-30 11:20] LABS: ALT 14 U/L (4-49); AST 17 U/L (17-59); African American GFR (CKD) >90 (>60 ml/min/1.73 sqM); Albumin 4.2 g/dL (3.5-5.0); Alkaline Phosphatase 86 U/L (38-126); Anion Gap 12 mmol/L; Blood Urea Nitrogen 16 mg/dL (9-20); Calcium 9.4 mg/dL (8.4-10.2); Carbon Dioxide 27 mmol/L (22-30); Chloride 102 mmol/L (98-107); Glucose 101 mg/dL (74-99); Non-African American GFR(CKD) >90 (>60 ml/min/1.73 sqM); Potassium 4.2 mmol/L (3.5-5.1); Sodium 141 mmol/L (137-145); Total Bilirubin 0.4 mg/dL (0.2-1.3); Total Protein 7.5 g/dL (6.3-8.2)
[2024-08-30] MEDS: HYDROmorphone 1 MG/ML 1 ML SYRINGE IVP STA (11:37)
[2024-08-30 12:33] LABS: Appearance,Urine Cloudy (Clear); Color,Urine Light Yellow; PH, Urine 7.5 (5.0-8.0); Protein,Urine 1+ (Negative)
[2024-08-30] MEDS: SODIUM CHLORIDE 0.9% 500 ML 500 ML IV ONE (12:33)
[2024-08-30 12:34] LABS: Bilirubin,Urine Negative (Negative); Blood,Urine Large (Negative); Glucose,Urine (UA) Negative (Negative); Ketones,Urine Negative (Negative); Leukocyte Esterase,Urine Large (Negative); Mucus,Urine Rare /hpf; Nitrite,Urine Negative (Negative); RBC,Urine >182 /hpf (0-5); Squamous Epithelial Cell,Urine <1 /hpf (0-4); Urobilinogen,Urine <2.0 mg/dL (<2.0); WBC,Urine 73 /hpf (0-5)
--- NOTE | 2024-08-30 12:35 | CT ---
EXAMINATION TYPE: CT abdomen pelvis w con DATE OF EXAM: 08/30/2024 12:09 PM COMPARISON: None. CLINICAL INDICATION: Male, 34 years old with history of right flank pain hx PKD, TECHNIQUE:CT scan of the abdomen and pelvis is performed without Oral Contrast and with IV Contrast, patient injected with 100 mL of Isovue 300. CT DLP: mGycm, Automated exposure control for dose reduction was used. FINDINGS: LUNG BASES-: No visible nodule. No infiltrate. LIVER/GB: No calcified gallstones. No space occupying hepatic lesion. Biliary tree is of normal ca liber. PANCREAS: No inflammation. No distinct mass. SPLEEN: No splenic enlargement. No lesion seen. ADRENALS: No nodule. No thickening. KIDNEYS/BLADDER: Innumerable cysts are seen about both kidneys compatible with autosomal dominant shandra ycystic kidney disease. There is mild stranding and edema noted of the right kidney relative to its l eft-sided counterpart without hydronephrosis. This could reflect hemorrhagic cyst. Underlying infecti on is not excluded. There are few scattered sub-5 mm calculi within the right kidney. Within the left kidney there are 2 sub-5 mm calculi noted. No hydronephrosis. No nephrolithiasis. No distinct fabio l mass. Urinary bladder grossly unremarkable. BOWEL: Normal appendix. Normal bowel caliber. No inflammation. GENITAL ORGANS: No gross abnormality. LYMPH NODES: No greater than 1cm abdominal or pelvic lymph nodes are appreciated. AORTA: No significant abnormality. OSSEOUS STRUCTURES: No significant abnormality is seen. OTHER: No significant additional abnormality is seen. IMPRESSION: 1. 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 There is mild stranding and edema noted of the right kidney relative to its left-sided coun terpart without hydronephrosis. This could reflect hemorrhagic cyst. Underlying infection is not excl uded. [facility], , 08/30/2024 12:33 PM
[2024-08-30] MEDS: cefTRIAXone IN SWFI 1,000 MG/10 ML SYRINGE IVP STA (13:15)
[2024-08-30 13:29] VITALS: BP 159/89
== END 2024-08-30 13:29 | disposition home or self-care (01) ==
LOC: EC 10:05
DX: R10.31 Right lower quadrant pain (principal)
CPT/HCPCS: 36415; 80053; 83605; 85025; 81001; 87086; 74177; 99284; 96374; 96375; 96361 ×2; J0696; J1171; Q9967